=== PATIENT | female | born 1950 | race Caucasian/White ===

== ENCOUNTER 2020-10-11 15:22 | Emergency (ER) | payer MEDICARE, BC ==
[2020-10-11 15:34] VITALS: BP 123/74; PULSE 106
--- NOTE | 2020-10-11 16:02 | CR ---
[id number] RAD/RAD Pelvis 1V W 2V Left Hip Exam: RAD Pelvis 1V W 2V Left Hip Indication:LEFT HIP PAIN. Comparison: June 23, 2020. Discussion: Increased distraction of the acetabular fracture since the prior examination. Femoral component of the prosthesis is superiorly dislocated in relation to the acetabular component. Additionally, the acetabular spacer appears dislocated from the acetabular cup and remains attached to the femoral head component of the femoral prosthesis. No new fractures are identified. There is however widening of the left sacroiliac joint along its inferior margin not definitely seen on the prior examination. Correlate for pelvic instability. Impression: As above. Vin Hastings MD 10/11/20 [id number] Thank you for allowing us to participate in the care of your patient.
--- NOTE | 2020-10-11 17:03 | EDM.PDOC ---
ED HPI GENERAL MEDICAL PROBLEM - General Chief Complaint: General Stated Complaint: left hip pain Time Seen by Provider: 10/11/20 15:30 Source of Information: Reports: Patient, Provider (Tawana Silver NP) History Limitations: Reports: No Limitations, Other (hard of hearing) - History of Present Illness INITIAL COMMENTS - FREE TEXT/NARRATIVE: 70-year-old female is brought to the emergency room by ambulance transferred from [facility] for evaluation of hip pain with movement. Patient is status post revision arthroplasty by Dr. [place] member 2019. Per report I believe this is the patient's second revision for chronic hip dislocations. She denies any fall or trauma. She complains of pain with any movement of her left hip. Past medical history is significant for squamous cell carcinoma of the sinuses. She reports little pain or discomfort currently at rest. No shortness of breath. No chest pain. No history of syncopal episode. Onset: Today Onset Date: 10/10/20 Duration: Day(s):, Recurring (Movement of the left hip) Location: Reports: Lower Extremity, Left Quality: Reports: Ache Severity: Mild Improves with: Reports: Rest Worsens with: Reports: Movement Associated Symptoms: Reports: No Other Symptoms Left Hip Pain Score (Numeric/FACES): 1 - Related Data Allergies Allergy/AdvReac Type Severity Reaction Status Date / Time No Known Allergies Allergy Verified 10/11/20 15:48 Home Meds: Home Meds Lisinopril [Prinivil] 5 mg PO DAILY #30 tablet 03/12/16 [Rx] Acetaminophen [Tylenol Arthritis Pain] 650 mg PO BID PRN 06/28/20 [History] Betamethasone Dipropionate [Diprosone 0.05% Crm] 0 gm TOP BID PRN 06/28/20 [History] Calcium Carbonate/Vitamin D3 [Caltrate 600 Plus D3 Tablet] 1 tab PO DAILY 06/28/20 [History] Cetirizine [ZyrTEC] 10 mg PO DAILY 06/28/20 [History] Cholecalciferol (Vitamin D3) [Vitamin D3] 2,000 unit PO DAILY 06/28/20 [History] Cyclobenzaprine [Flexeril] 10 mg PO TID PRN 06/28/20 [History] Erythromycin Base [Erythromycin] 1 dose EYEBOTH QID 06/28/20 [History] Multivitamin with Minerals [Multiple Vitamin] 1 each PO DAILY 06/28/20 [History] [place]-3/DHA/Epa/Fish Oil [Fish Oil 1,000 mg Softgel] 1,000 mg PO DAILY 06/28/20 [History] Sodium Chloride 2 gm PO TID 06/28/20 [History] Triamcinolone Acetonide [Kenalog 0.1% Crm] 15 gm .XX TID 06/28/20 [History] Urea [Urea 20% Crm] 85 gm .XX BID 06/28/20 [History] cephALEXin [Cephalexin] 500 mg PO TID 06/28/20 [History] Docusate Sodium/Sennosides [Senna Plus] 2 tab PO BID PRN tablet 07/29/20 [Rx] Ferrous Sulfate 325 mg PO BIDMEALS tablet 07/29/20 [Rx] Menthol/Methyl Salicylate [Icy Hot] 0 gm TOP QID PRN tube 07/29/20 [Rx] Sertraline [Zoloft] 12.5 mg PO DAILY #15 tablet 07/29/20 [Rx] Past Medical History Cardiovascular History: Reports: Hypertension Musculoskeletal History: Reports: Other (See Below) Other Musculoskeletal History: Pelvic fracture Endocrine/Metabolic History: Reports: Hypokalemia, Hypomagnesemia Other Endocrine/Metabolic History: Hyponeutremia Oncologic (Cancer) History: Reports: Squamous Cell Carcinoma, Other (See Below) Other Oncologic History: Sinus cancer - Past Surgical History HEENT Surgical History: Reports: Naso-Sinus Surgery Other HEENT Surgeries/Procedures: Sinus Cancer with status post nasal revision involving ethmoid sinus Musculoskeletal Surgical History: Reports: Hip Replacement Other Musculoskeletal Surgeries/Procedures:: pelvic fracture Oncologic Surgical History: Reports: Other (See Below) Other Oncologic Surgeries/Procedures: Post ethmoid sinus reconstruction Social & Family History - Family History Family Medical History: No Pertinent Family History - Tobacco Use Tobacco Use Status *Q: Former Tobacco User Used Tobacco, but Quit: Yes Month/Year Tobacco Last Used: - Recreational Drug Use Recreational Drug Use: No ED ROS GENERAL - Review of Systems Review Of Systems: Comprehensive ROS is negative, except as noted in HPI. ED EXAM, GENERAL - Physical Exam Exam: See Below Free Text/Narrative:: Frail-appearing elderly female she is alert in no acute distress. She has noticeable open sinus cavity due to prior surgery due to squamous cell carcinoma. She is hard of hearing but does answer my questions appropriately. She does complain of left hip pain with movement. She is nontoxic-appearing. Exam Limited By: No Limitations General Appearance: Alert, No Apparent Distress, Thin Nose: Other (Sinus and nasal evacuation due to squamous cell carcinoma) Throat/Mouth: Normal Voice, No Airway Compromise Head: Atraumatic Neck: Normal Inspection Respiratory/Chest: No Respiratory Distress, Lungs Clear, Normal Breath Sounds Cardiovascular: Regular Rate, Rhythm GI/Abdominal: Soft, Non-Tender Extremities: Other (Left hip incision with a dressing that is clean and dry. Patient has increased pain in the left hip with gentle roll sign. She is slightly shortened but not externally rotated.) Neurological: Alert, No Motor/Sensory Deficits Psychiatric: Normal Affect, Normal Mood Skin Exam: Warm, Dry, Intact, Normal Color, No Rash Course - Vital Signs Last Recorded V/S: Last Vital Signs Temp 98.0 F 10/11/20 15:29 Pulse 106 H 10/11/20 15:29 Resp 16 10/11/20 15:29 BP 123/74 10/11/20 15:29 Pulse Ox 94 L 10/11/20 15:29 - Radiology Interpretation Free Text/Narrative:: X-ray: left hip and AP pelvis Discussion: Increased distraction of the acetabular fracture since prior exam. Femoral component of the prosthesis is superiorly dislocated in relation to the acetabular component. Additionally the acetabular spacer appears dislocated from the acetabular cup and remains attached to the femoral component of the femoral prosthesis. Fractures are identified. There is however widening of the last sacroiliac joint along its inferior margin not definitely seen on the prior examination. Correlate for pelvic instability. Impression: As above - Re-Assessments/Exams Free Text/Narrative Re-Assessment/Exam: 10/11/20 17:33 Patient is comfortable resting on the bed. She is not requiring any IV medication for pain. Departure - Departure Time of Disposition: 17:50 Disposition: DC/Tfer to [facility] Condition: Good Clinical Impression: Failure of left total hip arthroplasty with dislocation of hip Qualifiers: Encounter type: initial encounter Qualified Code(s): T84.021A - Dislocation of internal left hip prosthesis, initial encounter - Discharge Information Referrals: Lidia Mendez MD [Primary Care Provider] - Forms: ED Department Discharge Sepsis Event Note (ED) - Evaluation Sepsis Screening Result: No Definite Risk - Focused Exam Vital Signs: Vital Signs Temp Pulse Resp BP Pulse Ox 10/11/20 15:29 98.0 F 106 H 16 123/74 94 L - Assessment/Plan Assessment:: Left revision total hip arthroplasty dislocation Plan: 1. Orthopedics consulted for definitive management of dislocated revision total hip arthroplasty. 2. Will be transferred to [address] Acting physician Dr[address] Larkin hospitalist. 3. Patient is saline locked and IV access is available if pain medication needed. 4. Patient will be transferred by ground ambulance and is in stable condition.
== END 2020-10-11 18:05 ==
LOC: KA.ED 15:22
DX: T84.021A Dislocation of internal left hip prosthesis, initial encounter (principal); I10 Essential (primary) hypertension; Z87.891 Personal history of nicotine dependence; Z79.899 Other long term (current) drug therapy
CPT/HCPCS: 99284; 99285

== ENCOUNTER 2023-08-30 13:29 | Emergency (ER) | payer MEDICARE, BC ==
[2023-08-30] MEDS ORDERED: Sodium Chloride 0.9% 10 ML Syringe FLUSH PRN (13:34)
[2023-08-30 13:54] LABS: BASOPHILS ABSOLUTE AUTO 0.05 10^3/uL (0.00-0.10); BASOPHILS PERCENT AUTO 0.3 % (0.0-1.0); EOSINOPHILS ABSOLUTE AUTO 0.28 10^3/uL (0.10-0.30); EOSINOPHILS PERCENT AUTO 1.9 % (1.0-3.0); HEMATOCRIT 35.1 % (37.0-47.0); HEMOGLOBIN 10.9 g/dL (12.0-16.0); IMMATURE GRAN ABSOLUTE AUTO 0.02 10^3/uL (0.00-0.50); IMMATURE GRAN PERCENT AUTO 0.1 % (0.0-5.0); LYMPHOCYTES ABSOLUTE AUTO 1.84 10^3/uL (1.00-4.00); LYMPHOCYTES PERCENT AUTO 12.5 % (20.0-40.0); MEAN CORPUSCULAR HEMOGLOBIN 28.8 pg (27.0-31.0); MEAN CORPUSCULAR HGB CONC 31.1 g/dL (32.0-36.0); MEAN CORPUSCULAR VOLUME 92.6 fL (82.0-92.0); MEAN PLATELET VOLUME 8.6 fL (7.4-10.4); MONOCYTES ABSOLUTE AUTO 1.34 10^3/uL (0.10-0.80); MONOCYTES PERCENT AUTO 9.1 % (2.0-8.0); NEUTROPHILS ABSOLUTE AUTO 11.19 10^3/uL (2.50-7.00); NEUTROPHILS PERCENT AUTO 76.1 % (50.0-70.0); PLATELET COUNT,PLT 509 10^3/uL (150-400); RED BLOOD CELL COUNT 3.79 10^6/uL (3.80-5.50); WHITE BLOOD CELL COUNT,WBC 14.72 10^3/uL (5.00-10.00)
[2023-08-30] MEDS: Sodium Chloride 0.9% 1,000 ML IV ONE (14:09)
[2023-08-30 14:13] LABS: ALANINE AMINOTRANSFERASE,ALT 8 U/L (14-63); ALKALINE PHOSPHATASE 73 U/L (46-116); ANION GAP 11.9 mmol/L (5-15); ASPARTATE AMNIOTRANSFERASE,AST 13 U/L (15-37); BILIRUBIN TOTAL 0.6 mg/dL (0.2-1.0); BLOOD UREA NITROGEN,BUN 14 mg/dL (7-18); CALCIUM 8.1 mg/dL (8.7-10.3); CARBON DIOXIDE,CO2 27.5 mmol/L (21.0-32.0); CHLORIDE,CL 104 mmol/L (98-107); CREATININE 0.77 mg/dL (0.51-1.17); GLUCOSE RANDOM 71 mg/dL (70-140); POTASSIUM,K 4.4 mmol/L (3.5-5.1); PROTEIN TOTAL,TP 5.6 g/dL (6.4-8.2); SODIUM,NA 139 mmol/L (136-145)
[2023-08-30 14:14] LABS: B-TYPE NATRIURETIC PEPTIDE,BNP 54 pg/mL (0-100)
[2023-08-30 14:17] LABS: ESTIMATED GFR 81 mL/min (>=60)
[2023-08-30 15:01] VITALS: PULSE 92
[2023-08-30 15:26] VITALS: BP 113/67
== END 2023-08-30 15:23 ==
LOC: KA.ED 13:29
DX: J06.9 Acute upper respiratory infection, unspecified (principal); E78.00 Pure hypercholesterolemia, unspecified; I10 Essential (primary) hypertension; J44.9 Chronic obstructive pulmonary disease, unspecified; Z79.899 Other long term (current) drug therapy; Z91.048 Other nonmedicinal substance allergy status
CPT/HCPCS: 36415; 71046; 80053; 83605; 83880; 84484; 85025; 93005; 96360; 99285; J7030; 93010; 99284

== ENCOUNTER 2023-10-21 10:22 | Emergency (ER) | payer MEDICARE, BC ==
[2023-10-21 10:52] LABS: BASOPHILS ABSOLUTE AUTO 0.02 10^3/uL (0.00-0.10); BASOPHILS PERCENT AUTO 0.2 % (0.0-1.0); EOSINOPHILS ABSOLUTE AUTO 0.15 10^3/uL (0.10-0.30); EOSINOPHILS PERCENT AUTO 1.6 % (1.0-3.0); HEMATOCRIT 33.9 % (37.0-47.0); HEMOGLOBIN 10.2 g/dL (12.0-16.0); IMMATURE GRAN ABSOLUTE AUTO 0.01 10^3/uL (0.00-0.50); IMMATURE GRAN PERCENT AUTO 0.1 % (0.0-5.0); LYMPHOCYTES ABSOLUTE AUTO 0.87 10^3/uL (1.00-4.00); LYMPHOCYTES PERCENT AUTO 9.2 % (20.0-40.0); MEAN CORPUSCULAR HEMOGLOBIN 27.4 pg (27.0-31.0); MEAN CORPUSCULAR HGB CONC 30.1 g/dL (32.0-36.0); MEAN CORPUSCULAR VOLUME 91.1 fL (82.0-92.0); MEAN PLATELET VOLUME 8.3 fL (7.4-10.4); MONOCYTES ABSOLUTE AUTO 0.82 10^3/uL (0.10-0.80); MONOCYTES PERCENT AUTO 8.7 % (2.0-8.0); NEUTROPHILS PERCENT AUTO 80.2 % (50.0-70.0); PLATELET COUNT,PLT 557 10^3/uL (150-400); RED BLOOD CELL COUNT 3.72 10^6/uL (3.80-5.50); RED CELL DISTRIBUTION WIDTH 14.7 % (11.5-14.5); WHITE BLOOD CELL COUNT,WBC 9.47 10^3/uL (5.00-10.00)
[2023-10-21 11:08] LABS: ALBUMIN 2.09 g/dL (3.40-5.00); ANION GAP 9.8 mmol/L (5-15); BILIRUBIN TOTAL 0.3 mg/dL (0.2-1.0); CALCIUM 7.9 mg/dL (8.7-10.3); CARBON DIOXIDE,CO2 29.9 mmol/L (21.0-32.0); CREATININE 0.66 mg/dL (0.51-1.17); EST CRCL DRUG DOSING (CG) 64.58 mL/min; POTASSIUM,K 3.7 mmol/L (3.5-5.1); PROTEIN TOTAL,TP 5.5 g/dL (6.4-8.2)
[2023-10-21] MEDS: Albuterol/Ipratropium 3.0-0.5 MG/3 ML Neb Soln NEB ONE (11:56)
[2023-10-21] MEDS: cefTRIAXone 2 GM Vial IVPUSH ONE (11:56)
[2023-10-21] MEDS: Azithromycin 250 MG Tab PO ONE (11:56)
[2023-10-21 12:07] VITALS: BP 106/63; PULSE 90
== END 2023-10-21 12:26 ==
LOC: KA.ED 10:22
DX: J18.9 Pneumonia, unspecified organism (principal); I11.0 Hypertensive heart disease with heart failure; I10 Essential (primary) hypertension; E78.00 Pure hypercholesterolemia, unspecified; E87.6 Hypokalemia; E83.51 Hypocalcemia; E88.09 Other disorders of plasma-protein metabolism, not elsewhere classified; E87.1 Hypo-osmolality and hyponatremia; E83.42 Hypomagnesemia; Z91.048 Other nonmedicinal substance allergy status; Z86.16 Personal history of COVID-19; Z79.899 Other long term (current) drug therapy
CPT/HCPCS: 36415; 71045; 80053; 83605; 83880; 85025; 87040; 94640; 96374; 99284; 99285-25; A9270-GY; J0696; J7620-GY